=== PATIENT | male | born 1945 | race Caucasian/White ===

== ENCOUNTER 2016-12-30 12:58 | Day surgery (SDC) | payer MEDICARE, OTHER ==
[~2016-12-30] VITALS: Ht 177.8 cm; Wt 91.0 kg
[~2016-12-30 12:58] MED LIST: LISI2.5T PO; Sodium Chloride LOK Flush 10 mL Syringe IV PRN; TAMS0.4C29 PO; fentaNYL-PF 50 mCg/mL 2 mL Inj IVPUSH PRN
[2016-12-30] MEDS ORDERED: fentaNYL-PF 50 mCg/mL 2 mL Inj IVPUSH ONE (12:59)
[2016-12-30 13:20] VITALS: BP 157/92; PULSE 55; RESP 16; O2SAT 100
[2016-12-30] MEDS: 0.9% Sodium Chloride 1,000 ML IV SCH ×2 (13:32→14:39)
[2016-12-30 14:50] VITALS: BP 160/89; PULSE 58; RESP 16; O2SAT 100
[2016-12-30 15:00] VITALS: BP 155/91; PULSE 58; RESP 16; O2SAT 99
--- NOTE | 2016-12-31 07:43 | ENDO ---
[address] [address] ENDOSCOPY PROCEDURE PATIENT: JT KELLOGG : 1945 MR#: [id number] ADMIT: 12/30/2016 JOB ID: [id number] DATE OF SERVICE: PROCEDURE: Colonoscopy. INDICATION: The patient with personal history of colon polyps and a family history of colon cancer. The patient's ASA classification is two. Mallampati score is two. MEDICATIONS: 1. Versed at 3 mg. 2. Fentanyl 75 mcg. INSTRUMENT USED: PCF H 180 AL. PREPARATION QUALITY: Fair. PROCEDURE Details: After informed consent was obtained, the patient was brought into the GI suite, where he was placed on oxygen via nasal cannula and monitored with continuous pulse oximeter, telemetry and blood pressure monitoring. A time-out was performed. Then, he was placed in a left lateral decubitus position and medications were administered for sedation. Digital rectal exam was performed which was unremarkable. The colonoscope was then inserted into the rectum and advanced under direct visualization to the cecum, which was identified by the presence of the ileocecal valve and appendiceal orifice. Once the cecum was reached, the colonoscope was withdrawn back into the rectum as the mucosa and lumen were examined. In the rectum, retroflexion was performed. Following retroflexion, remaining air in the rectum was suctioned and the procedure was completed. FINDINGS: 1. In the transverse colon, there were three polyps that ranged in size diminutive to 6 mm. The 6 mm polyp was flat and therefore was lifted using normal saline and then removed with a hot snare. Additionally, there was another polyp just distal to this that measured approximately 5 mm that was removed with a hot snare. 2. In the distal portion of the transverse colon, there was a diminutive polyp that was removed with cold biopsy forceps. 3. Scattered diverticula were seen throughout the entire colon. IMPRESSION: 1. Three transverse colon polyps. 2. Cat diverticulosis. RECOMMENDATIONS: Repeat colonoscopy in three years, sooner if symptoms dictate. COMPLICATIONS: None. ESTIMATED BLOOD LOSS: Less than 5 mL.
--- NOTE | 2017-01-03 14:14 | PATH ---
SURGICAL PATHOLOGY Attending Physician:Daniel Metz CASE STATUS: Signed Out PATIENT NAME: JT KELLOGG PID: [id number] : 1945 DATE COLLECTED:12/30/2016 00:00 SPECIMEN: Colon, Biopsy CLINICAL HISTORY: 1). TRANSVERSE COLON POLYPS X3 FINAL DIAGNOSIS: Transverse Colon Polyps, Biopsies: Portion of sessile serrated adenoma x1. Portions of tubular adenoma x2; negative for high-grade dysplasia. Superficial portion of colorectal mucosa x1 with no diagnostic abnormality. ICD10: K63.5 GROSS DESCRIPTION: The specimen is received in one formalin filled container labeled with the patient's name, sublabeled "transverse colon polyps" and consists of 4 portions of tissue which aggregate to 0.5 x 0.5 x 0.4 CM. The specimen is entirely submitted in one cassette. 12/31/2016 [facility] ICD-9 CODES: CPT CODES: 1: 43737 Electronically Signed Out Aixa Haywood MD [facility] [address], [place] [address] Technical component performed at [facility], [facility] [address], [address]
== END 2016-12-30 23:59 | disposition home or self-care (01) ==
LOC: END 12:58
PROVIDERS: ATTEND Internal Medicine Gastroenterology
DX: Z12.11 Encounter for screening for malignant neoplasm of colon (principal); D12.3 Benign neoplasm of transverse colon; Z80.0 Family history of malignant neoplasm of digestive organs; Z85.51 Personal history of malignant neoplasm of bladder; Z90.5 Acquired absence of kidney; Z86.010 Personal history of colon polyps; K57.30 Diverticulosis of large intestine without perforation or abscess without bleeding
CPT/HCPCS: 45380; 45381; 45385; 88305; 99153; G0500; J2250; J3010; J7030